=== PATIENT | female | born 1955 | race Caucasian/White ===

== ENCOUNTER 2024-05-31 07:20 | Outpatient (CLI) | payer MEDICARE, SELFPAY ==
--- NOTE | ~2024-05-31 | CT_ITS ---
EXAMINATION: CT abdomen pelvis wo/w con DATE: 05/31/2024 08:28 INDICATION: Microscopic hematuria TECHNIQUE: Computed tomography (CT) of the abdomen and pelvis was performed without intravenous contr ast. CT of the abdomen and pelvis was then performed with a total of 130 mL Omnipaque-350 intravenous contrast using a double-bolus technique for simultaneous opacification of the renal parenchyma and r enal collecting system. Automated exposure control and iterative reconstruction technique were employ ed. The dose-length product was 2327.88 mGy-cm. COMPARISON: None FINDINGS: Mild discoid atelectasis in bilateral lung bases. Calcified left lower lobe nodule along with calcifi ed mediastinal lymph nodes and numerous small splenic calcific lesions, all consistent with old granu lomatous disease. Heart size is normal. No pericardial or pleural effusion. Cholecystectomy clips the gallbladder fossa. Liver, pancreas and bilateral adrenal glands are normal. Small region of cortical scarring at the upper pole of the right kidney likely sequela prior infectio n or infarction. There are few subcentimeter cysts measuring up to 9 mm in the left kidney. Mild righ t hydronephrosis with transition point near the ureteropelvic junction where there is a sharp kink in the course of the ureter. The kinking appears transient, not observed on the prior precontrast image s. No left-sided hydronephrosis. No urolithiasis. The left ureter is opacified in its entirety. The d istal right ureter remains unopacified likely due to decompressed state. No urothelial irregularities identified at the bilateral renal collecting systems or contrast opacified portions of the ureters. Bladder is unremarkable. Uterus and bilateral adnexa are unremarkable. There is moderate colonic diverticulosis with a sigmoid predominance. There is no adjacent inflammatory change to suggest diverticulitis. No bowel obstruc tion. No free intraperitoneal gas or fluid. No pathologically enlarged abdominal or pelvic lymphadeno chilango. T6-T9 chronic compression and burst fractures with vertebral plasties at T6-T8. IMPRESSION: 1. No urolithiasis or urothelial regularities to account for reported hematuria. 2. Mild right hydronephrosis with transition point at the proximal most right ureter where the ureter undergoes a transient sharp kink in its course seen on the postcontrast but not on the earlier preco ntrast images. Reviewed, dictated and finalized at location B. HOUSE ADMINISTRATOR IMPRESSION: 1. No urolithiasis or urothelial regularities to account for reported hematuria . 2. Mild right hydronephrosis with transition point at the proximal most right u reter where the ureter undergoes a transient sharp kink in its course seen on t he postcontrast but not on the earlier precontrast images.
[2024-05-31 08:08] LABS: Estimated Glomerular Filt Rate > 60
== END 2024-05-31 07:21 | disposition home or self-care (01) ==
PROVIDERS: PCP Physician Assistant; Visit Provider Urology
DX: R31.29 Other microscopic hematuria (principal); N13.30 Unspecified hydronephrosis
CPT/HCPCS: 74178; Q9967

== ENCOUNTER 2024-06-28 12:12 | Outpatient (CLI) | payer MEDICARE, SELFPAY ==
--- NOTE | ~2024-06-28 | NM_ITS ---
EXAMINATION: JAY mckee renal scan DATE: 06/28/2024 13:28 INDICATION: Hydronephrosis TECHNIQUE: 8.3 mCi Tc-99m MAG3 was administered IV. 40 mg furosemide was administered IV immediately afterward. The patient was scanned in the supine position. A posterior abdominal radionuclide angiog ayala was obtained. A subsequent time course of static images of the kidneys, ureters, and bladder was obtained. COMPARISON: CT dated 05/31/2024 FINDINGS: The posterior abdominal radionuclide angiogram and sequential static images show normal size, positio n, and morphology of the kidneys. Peak renal parenchymal uptake was 2.4 min in left kidney and 5.4 mi n in right kidney (normal peak 3-5 minutes). The relative early renal uptake was 53% on the left and 47% on the right (<40% is abnormal). No abnormalities of the ureters or bladder are seen. T1/2 for clearance of activity from the left kidney and proximal collecting system was 5 minutes. T1/2 for clearance of activity from the right kidney and proximal collecting system was 29 minutes. Notes on interpretation: T1/2 <10 minutes is normal, 10-15 minutes is low grade obstruction of questi onable clinical significance, 15-20 minutes is partial obstruction that is likely clinically signific ant, >20 minutes is high grade obstruction. Note that false positives may be seen with supine positio dana, dehydration, severely dilated nonobstructed kidney, atonic collecting system, poor renal functi on, and chronic furosemide use. IMPRESSION: 1. Symmetric kidney function. 2. Significantly delayed activity clearance from the right kidney consistent with high-grade obstruc tion or potentially lower grade obstruction with atonic collecting system. Reviewed, dictated and finalized at location A. ICAL ACCOUNT SPECIALIST IMPRESSION: 1. Symmetric kidney function. 2. Significantly delayed activity clearance from the right kidney consistent w ith high-grade obstruction or potentially lower grade obstruction with atonic c ollecting system.
== END 2024-06-28 12:13 | disposition home or self-care (01) ==
PROVIDERS: PCP Physician Assistant; Visit Provider Urology
DX: N13.30 Unspecified hydronephrosis (principal)
CPT/HCPCS: 78708; A9562; J1940

== ENCOUNTER 2024-11-17 12:31 | Outpatient (CLI) | payer MEDICARE, SELFPAY ==
--- NOTE | ~2024-11-17 | NM_ITS ---
EXAMINATION: JAY mckee renal scan DATE: 11/18/2024 07:13 INDICATION: Hydronephrosis TECHNIQUE: 8.07 mCi Tc-99m MAG3 was administered IV. 40 mg furosemide was administered IV immediatel y afterward. The patient was scanned in the supine position. A posterior abdominal radionuclide angio gram was obtained. A subsequent time course of static images of the kidneys, ureters, and bladder was obtained. COMPARISON: Renal scan dated 06/28/[address] dated 05/31/2024 FINDINGS: The posterior abdominal radionuclide angiogram and sequential static images show normal size, positio n, and morphology of the kidneys. Peak renal parenchymal uptake was 2.4 min in left kidney and 1.4 mi n in right kidney (normal peak 3-5 minutes). The relative early renal uptake was 53% on the left and 47% on the right (<40% is abnormal). No abnormalities of the ureters or bladder are seen. T1/2 for clearance of activity from the left kidney and proximal collecting system was 6 minutes. T1/2 for clearance of activity from the right kidney and proximal collecting system was 29 minutes. Notes on interpretation: T1/2 <10 minutes is normal, 10-15 minutes is low grade obstruction of questi onable clinical significance, 15-20 minutes is partial obstruction that is likely clinically signific ant, >20 minutes is high grade obstruction. Note that false positives may be seen with supine positio dana, dehydration, severely dilated nonobstructed kidney, atonic collecting system, poor renal functi on, and chronic furosemide use. IMPRESSION: 1. Symmetric kidney function. 2. Significantly delayed activity clearance from the right kidney consistent with high-grade obstruc tion or potentially lower grade obstruction with atonic collecting system. Favor the latter given rosy t this has been present for multiple months without significant asymmetric loss of right renal functi on. Reviewed, dictated and finalized at location A. IMPRESSION: 1. Symmetric kidney function. 2. Significantly delayed activity clearance from the right kidney consistent w ith high-grade obstruction or potentially lower grade obstruction with atonic c ollecting system. Favor the latter given that this has been present for multipl e months without significant asymmetric loss of right renal function.
--- OUTSIDE RECORDS SUMMARY | 2024-11-17 14:27 | XMS_ITS | Referral Summary ---
Author Organization [facility] Address [address] [place] [address] Care Team Providers Care Assistant Produce Manager Name Role Phone Barbie Chase Primary Care Provider + Allergies Active Allergy Reactions Criticality Noted Date Comments Adhesive Hives,Itching,Rash, Swelling Medium 12/05/2016 Cephalexin Hives High 04/30/2005 Dexamethasone Hives,Other (See comments) Medium 02/23/2018 Weight gain Doxycycline Hives,Other (See comments) Medium 11/23/2003 Esophageal ulcer Gave ulcer in esauphagus Famotidine Hives Medium 11/23/2003 Gluten Diarrhea,Flatulence ,Mental status changes,Nausea & Vomiting,Other (See comments),Stomach upset,Vomiting Low 07/20/2018 celiac's Lisinopril Cough Low 06/26/2020 Metoclopramide Hives High 04/30/2005 Naproxen Hives Medium 11/23/2003 Penicillins Hives,Other (See comments) High 11/23/2003 dyspnea Sennosides-Docusate Sodium Hives High 08/07/2012 Sodium Phosphate Hives Medium 02/23/2018 Medications albuterol HFA (PROVENTIL HFA,VENTOLIN HFA,PROAIR HFA) 90 mcg/actuation inhaler Inhale 2 puffs every 4 (four) hours as needed Active amLODIPine (NORVASC) 5 mg tablet Take 1 tablet (5 mg total) by mouth daily 1 Active calcium carbonate-vitami n D3 (CALTRATE 600 + D) 1500 mg (600 mg elemental) -400 units per tablet 1 Active estradioL (ESTRACE) 0.01 % (0.1 mg/gram) vaginal cream Insert 0.5 g into the vagina once a week 0 Active fexofenadine (CHRISTIAN) 180 mg tablet Take 1 tablet (180 mg total) by mouth daily 1 Active olmesartan (BENICAR) 40 mg tablet Take 1 tablet (40 mg total) by mouth daily 1 Active omeprazole (PriLOSEC) 40 mg capsule Take 1 capsule (40 mg total) by mouth daily 1 Active vitamin E (AQUASOL E) 1,000 unit capsule Take by mouth daily 1 Active multivitamin capsule Take 1 capsule by mouth daily Active triamcinolone (NASACORT) 55 mcg nasal inhaler Administer 2 sprays into each nostril daily Active pen needle, diabetic (Unifine Pentips) 31 gauge x 3/16 needleIndication s:Osteoporosis, unspecified osteoporosis type, unspecified pathological fracture presence Use daily with Tymlos. 100 each 1 2 Active Additional Information Patient not taking.Reported on 03/23/2024 fluticasone furoate-vilanter oL (Breo Ellipta) 100-25 mcg/dose diskus inhaler Inhale 1 puff daily 2 Active abaloparatide (Tymlos) 80 mcg (3,120 mcg/1.56 mL) pen injector Inject 0.04 mL (80 mcg total) under the skin daily Active aspirin 81 mg chewable tablet Take 1 tablet (81 mg total) by mouth daily 4 Active dicyclomine (BENTYL) 20 mg tablet Take 1 tablet (20 mg total) by mouth 4 (four) times a day as needed 3 Active metoprolol XL (TOPROL-XL) 50 mg extended release tablet Take 1 tablet (50 mg total) by mouth daily 4 Active nitroglycerin (NITROSTAT) 0.[address] 1 tablet (0.4 mg total) under the tongue every 5 (five) minutes as needed 4 Active valACYclovir (VALTREX) 1 gram tablet Take 2 tablets (2,000 mg total) by mouth 2 (two) times a day 4 Active Active Problems Problem Noted Date Diagnosed Date Age-related osteoporosis wit hout current pathological fracture 02/18/2023 Social History Tobacco Use Types Packs/Day Years Used Date Smoking Tobacco: Never Smokeless Tobacco: Never Personal Safety Answer Date Recorded Getting School Help Needed Not on file 05/29 Comments Unknown Sex and Gender Information Value Date Recorded Sex Assigned at Not on file Legal Sex Female 11:31 PM STRATEGIC SOURCING CONSULTANT Gender Identity Female 09/05/2021 9:26 AM CDT Sexual Orientation Straight 09/05/2021 9: 26 AM CDT Last Filed Vital Signs Vital Sign Reading Time Taken Comments Blood Pressure 107/46 04/02/2024 12:13 PM CDT Pulse 54 04/02/2024 12:13 PM CDT Temperature 36.7 C (98 F) 04/02/2024 12:13 PM CDT Respiratory Rate 18 04/02/2024 12:13 PM CDT Oxygen Saturation 99% 04/02/2024 12:13 PM CDT Inhaled Oxygen Concentration - - Weight 94.5 kg (208 lb 4.8 oz) 04/02/2024 12:07 PM CDT Height 163.8 cm (5' 4.5) 03/23/2024 1:21 PM CDT Body Mass Index 35.2 03/23/2024 1:21 PM CDT Plan of Treatment Not on file Procedures Procedure Name Priority Date/Time Associated Diagnosis Comments DEXA TBS AXIAL SKELETON BONE DENSITY 1 OR MORE SITES Schedule Routine, Read Routine (OP Routine) 03/23/2024 1:18 PM CDT Age-related osteoporosis without current pathological fracture from Last 3 Months or Most Recently Relevant to Health Maintenance Results * Dexa TBS Axial Skeleton Bone Density 1 or more sites (03/23/2024 1:18 PM CDT) Anatomical Region Laterality Modality Wrist, Body N/A Radiographic Stephanie ging Narrative 03/23/2024 3:07 PM CDT Patient Name: Kimberley Sinha Date of : 1955 Date of scan: 03/23/2024 Bone mineral density was performed on a Hologic Discovery Densitometer. Based on machine cross-calibration and precision studies the least significant changes of this densitometer is 0.024 g/cm2 at the spine, 0.020 g/cm2 at the total proximal femur, and 0.014g/cm2 at the forearm. HISTORY: This is a 68 y.o. postmenopausal female with a history of asthma, celiac disease, osteoporosis, and vitamin D deficiency. She reports that she has never smoked. She has never used smokeless tobacco. Currently on treatment with calcium, vitamin D, and zoledronic acid (Reclast), previously treated with ibandronate (Boniva) and abaloparatide (Tymlos), and current complaint of arm pain, back pain, neck pain, and leg pain. INDICATIONS: Menopause status, treatment monitoring, history of prior wrist and vertebral fracture, vitamin D deficiency, and history of osteoporosis. FINDINGS: BONE MINERAL DENSITY OF THE LUMBAR SPINE Bone Mineral Density (BMD) of the lumbar spine was measured from L1-L4 and the average density was calculated to be 0.969 gm/cm2. This corresponds to a T-score (standard deviations from the mean of young adults) of -0.7. When compared to the previous study of 02/18/2023 there has been a 0.064 gm/cm (7.1%) increase in bone density that is considered significant. BONE MINERAL DENSITY OF THE PROXIMAL FEMUR Bone Mineral Density (BMD) of the left hip total was found to be 0.710 gm/cm2. This corresponds to a T-score standard deviations from the mean of young adults of -1.9. Femoral neck is 0.536 gm/cm2 with a T-score (standard deviations from the mean of young adults) of -2.8. When compared to the previous study of 02/18/2023 there has been no significant changes in bone density. BONE MINERAL DENSITY OF THE FOREARM Bone Mineral density (BMD) of the left proximal 1/3 of the radius measures 0.539 gm/cm2. This corresponds to a T-score (standard deviations from the mean of young adults) of -2.6. There is no previous study available for comparison. A forearm bone density study was performed in addition to the routine study because of forearm protocol . SUMMARY: Bone mineral density shows evidence of osteoporosis and marked increase risk of fracture. There has been a significant increase in bone density since previous measurement. The lumbar spine Trabecular Bone Score is 1.189 which suggests degraded bone microarchitecture compared to the general population. Final decisions regarding diagnostic or therapeutic recommendations should include BMD, TBS, additional clinical risk factors as well the clinical context of the patient. Please see attached TBS results for further details. ADDITIONAL COMMENTS: Postmenopausal Women and Men Over 50: Diagnostic criteria: Osteoporosis: BMD at or below -2.5 T-score; Osteopenia (low bone mass): BMD between -1.0 and -2.5 T-score. If the patient has a history of a fragility fracture, a fracture that occurred with trauma equivalent to a fall from a standing position or less, then the diagnosis is osteoporosis regardless of bone density. The history and data sections of the bone mineral density scan were prepared by Kami Tran(Abdi)(Lopez)(BD) CBDT who is accredited by the International Society of Clinical Densitometry. The overall patient assessment and scan interpretation were performed by Tawanna Garcia MD who is certified by the International Society of Clinical Densitometry. [id number] Tawanna Garcia MD IMG DXA PROCEDURES Final Resu lt from Last 3 Months or Most Recently Relevant to Health Maintenance Insurance [facility] MEDICARE ADVANTAGE [facility]IC[facility] Address: [facility] [address] [place] [address] [facility] MEDICARE ADVANTAGE [facility] Address[id number] [place] [address] Care Teams Assistant Produce Manager Relationship Specialty Start Date End Date Barbie Chase PA [address] [place] [address] PCP - General Physician Freelance Digital Project Manager 01/01/21
--- OUTSIDE RECORDS SUMMARY | 2024-11-17 14:27 | XMS_ITS | Clinical Summary ---
Author Organization [facility] Address [address] [place] [address] Phone Care Team Providers Care Rn Manager Name Role Phone Osmani Blakely MD Primary Care Provider Allergies Active Allergy Reactions Criticality Noted Date Comments Amoxicillin-Pot Clavulanate Hives High 08/07/2012 Cephalexin Hives High 08/07/2012 Doxycycline Hyclate Other (See Comments) 08/07/2012 Gave ulcer in esauphagus Metoclopramide Hives High 08/07/2012 Penicillins Hives,Other (See Comments) High 08/07/2012 Sennosides-Docusate Sodium Hives High 08/07/2012 Medications MULTIVITAMIN ORALIndications: Mastalgia,Family history of breast cancer Take by mouth. Active VITAMIN E ORAL Take by mouth. Active CALCIUM ORAL Take by mouth. Active Active Problems Patient Care Coordination No te Formatting of this note migh t be different from the original. Primary Care: Osmani Pérez MD Referring Provider: Osmani Pérez MD [address] [address] Other: Problem Noted Date Diagnosed Date FH: malignant neoplasm of breast 08/18/2012 Overview (08/02/2013): calculated, five-year risk 3.4% and her lifetime risk is 19.3%. 08/19/12 EVISTA x 9 months Assessment & Plan (08/02/2013 2:59 PM FAMILY LAW ATTORNEY): Flor voss d/t Ses Depression, weight gain, etc after 6 months leg cramps mammo August Assessment & Plan (03/09/2013 9:49 AM CDT): Evista 6 months Assessment & Plan (08/19/2012 1:08 PM CDT): IOV Boby Breast pain - primrose oil 2 tabs with meals tid 3 previous bx in [place] last 20 years last one 2000 ROV months wihtout coutning biopsies her risk is 2.5 and 14.5% Celiac disease Arthritis Family History Medical History Relation Name Comments Other Father when pt in [place] Breast Cancer Maternal Aunt Osteoporosis Mother age 8y Breast Cancer Sister 1 mohit Cancer Sister 1 mohit skin Heart Disease Sister 2 miracle Stroke Sister 2 miracle Uterine Cancer Sister 2 miracle Healthy Sister 3 mirlande Healthy Sister 4 tanvir Aneurysm Sister 5 joshua brain Ovarian Cancer Neg Hx Relation Name Status Comments Father Maternal Aunt Mother Sister 1 mohit Alive Sister 2 miracle Alive Sister 3 mirlande Alive Sister 4 tanvir Alive Sister 5 joshua Social History Tobacco Use Types Packs/Day Years Used Date Smoking Tobacco: Never Smokeless Tobacco: Never Alcohol Use Standard Drinks/Week Comments Yes 0 (1 standard drink = 0.6 oz pur e alcohol) occasionally Comments No Sex and Gender Information Value Date Recorded Sex Assigned at Not on file Legal Sex Female 12:24 PM FAMILY LAW ATTORNEY Gender Identity Not on file Sexual Orientation Not on file 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 Not on file Not on file Not on file Last Filed Vital Signs Vital Sign Reading Time Taken Comments Blood Pressure 149/89 10/11/2014 9:31 AM CDT Pulse 64 10/11/2014 9:31 AM CDT Temperature 36.9 C (98.5 F) 08/02/2013 2:42 PM FAMILY LAW ATTORNEY Respiratory Rate 16 08/02/2013 2:42 PM FAMILY LAW ATTORNEY Oxygen Saturation - - Inhaled Oxygen Concentration - - Weight 94.3 kg (208 lb) 10/11/2014 9:31 AM CDT Height 170.2 cm (5' 7) 10/11/2014 9:31 AM CDT Body Mass Index 32.58 10/11/2014 9:31 AM CDT Plan of Treatment Health Maintenance Due Date Last Done Comments DTAP/TDAP/TD VACCINES (1 - Tdap) 1974 COLORECTAL SCREENING 2000 Colorectal Cancer Screening 2000 FIT-DNA Q 3 years 2000 FIT/FOBT Q 1 year 2000 Flex Sig/CT Colonography Q 5 years 2000 PNEUMOCOCCAL VACCINE 50+ YEA RS (1 of 1 - PCV) 2005 ZOSTER VACCINE (1 of 2) 2005 BREAST CANCER SCREENING 07/18/2016 07/18/19 16, 07/18/2015, 10/11/2014, Additional history exists OSTEOPOROSIS SCREENING 2020 INFLUENZA VACCINE (#1) 2024 RSV VACCINE (60+ or ) (1 - 1-dose 75+ series) 2030 Procedures Procedure Name Priority Date/Time Associated Diagnosis Comments MAMMO DIAGNOSTIC BILATERAL W OR WO CAD Routine 10/11/2014 9:54 AM CDT FH: malignant neoplasm of breast from Last 3 Months or Most Recently Relevant to Health Maintenance Results * MAMMO DIGITAL DIAG BILAT (10/11/2014 9:54 AM CDT) Anatomical Region Laterality Modality Breast Bilateral Mammography 10/11/2014 9:51 AM CDT Narrative 10/17/2014 7:33 AM CDT EXAM: BILATERAL DIAGNOSTIC FULL FIELD DIGITAL MAMMOGRAPHY WITH CAD DATE: 10/11/14 HISTORY: Previous benign surgical biopsies on the left. Annual followup. TECHNIQUE: Mediolateral oblique and craniocaudal views of both breasts were performed using full field digital mammography. Computer aided diagnosis was performed. Comparison exams date back to July 2008 BREAST COMPOSITION: Heterogeneously dense, which lowers the sensitivity of mammography. FINDINGS: No suspicious finding are seen on the current mammogram. Since the prior study, there has been no significant change. CAD detected no significant abnormality. OVERALL ASSESSMENT: BI-RADS Category: 1. Negative. RECOMMENDATION: Routine mammographic followup in one year. Dictated from [facility] Procedure Note Sukumar Pruitt MD - 10/17/2014 EXAM: BILATERAL DIAGNOSTIC FULL FIELD DIGITAL MAMMOGRAPHY WITH CAD DATE: 10/11/14 HISTORY: Previous benign surgical biopsies on the left. Annual followup. TECHNIQUE: Mediolateral oblique and craniocaudal views of both breasts were performed using full field digital mammography. Computer aided diagnosis was performed. Comparison exams date back to July 2008 BREAST COMPOSITION: Heterogeneously dense, which lowers the sensitivity of mammography. FINDINGS: No suspicious finding are seen on the current mammogram. Since the prior study, there has been no significant change. CAD detected no significant abnormality. OVERALL ASSESSMENT: BI-RADS Category: 1. Negative. RECOMMENDATION: Routine mammographic followup in one year. Dictated from [facility] Janet Martinez MD MAMMO ORDERABLES Final Result from Last 3 Months or Most Recently Relevant to Health Maintenance Insurance Care Teams Rn Manager Relationship Specialty Start Date End Date Osmani Blakely MD [address] [address] PCP - General Family Practice 08/07/12
--- OUTSIDE RECORDS SUMMARY | 2024-11-17 14:27 | XMS_ITS | Clinical Summary ---
Author Organization [facility] Address [address] [place] [address] Care Team Providers Care Cotton Chopper Name Role Phone Barbie Chase Primary Care [...] osteoporosis wit hout current pathological fracture 02/18/2023 Family History Medical History Relation Name Comments Osteoporosis Mother Osteoporosis Sister 1 Broken bones Sister 2 Hip fracture Neg Hx Kyphosis Neg Hx Scoliosis Neg Hx Relation Name Status Comments Mother Sister 1 Sister 2 Alive Social History Tobacco Use Types Packs/Day Years Used Date Smoking Tobacco: Never Smokeless Tobacco: Never Personal Safety Answer Date Recorded Getting School Help Needed Not on file 05/29 Comments Unknown Sex and Gender Information Value Date Recorded Sex Assigned at Not on file Legal Sex Female 11:31 PM BUILDING PERFORMANCE CONSULTANT Gender Identity Female 09/05/2021 9:26 AM CDT Sexual Orientation Straight 09/05/2021 9: 26 AM CDT Obstetrics History Last Filed Vital Signs Vital Sign Reading [...] 03/23/2024 1:21 PM CDT Plan of Treatment Health Maintenance Due Date Last Done Comments Colon Cancer Screening-Colonoscopy 1955 Depression Screening 1955 Fall Risk Assessment 1955 Hepatitis C Screening 1955 Hepatitis B Screening 1973 Zoster Vaccine (1 of 2) 2005 Well Visit 65+ 2020 Pneumococcal vaccine 65+ (2 of 2 - PCV) 07/17/2021 07/17/2020 Covid-19 Vaccine (2023-2 5 season) 2024 09/27/2020, 08/30/2020 Breast Cancer Screening-Mammogram 11/23/2024 11/24/2023, 11/24/2023, 09/23/2022, Additional history exists Influenza Vaccine (Season Ended) 2025 03/02/2020, 02/23/2018, 03/11/2017 Osteoporosis Screening-Bone Density Scan 03/23/2026 03/23/2024, 02/18/2023, 05/15/2022, Additional history exists DTaP/Tdap/Td Vaccine (3 - Td or Tdap) 07/20/2028 07/20/2018, 11/04/2008 Procedures Procedure Name Priority Date/Time Associated Diagnosis [...] mineral density scan were prepared by Kami Tracey R.T.(R)(M)(BD) CBDT who is accredited by the International Society of Clinical Densitometry. The overall patient assessment and scan interpretation were performed by Tawanna Garcia MD who is certified by the International Society of Clinical Densitometry. [id number] Tawanna Garcia MD IMG DXA PROCEDURES Final Resu lt from Last 3 Months or Most Recently Relevant to Health Maintenance Insurance [employer] ADVANTAGE [employer] Care Teams Cotton Chopper Relationship Specialty Start Date End Date Barbie Chase PA [address] [place] [address] PCP - General Physician Neon Glass Bender 01/01/21
== END 2024-11-17 12:32 | disposition home or self-care (01) ==
PROVIDERS: PCP Physician Assistant; Visit Provider Urology
DX: N13.30 Unspecified hydronephrosis (principal)
CPT/HCPCS: 78708; A9562; J1938

== ENCOUNTER 2025-05-18 12:54 | Outpatient (CLI) | payer MEDICARE, SELFPAY ==
--- NOTE | ~2025-05-18 | NM_ITS ---
EXAMINATION: JAY mckee renal scan DATE: 05/18/2025 15:42 INDICATION: Right hydronephrosis TECHNIQUE: 7.6 mCi Tc-99m MAG3 was administered IV. 40 mg furosemide was administered IV 10 minutes afterward. The patient was scanned in the upright/supine position. A posterior abdominal radionuclide angiogram was obtained. A subsequent time course of static images of the kidneys, ureters, and bladder was obtained. COMPARISON: None FINDINGS: The posterior abdominal radionuclide angiogram and sequential static images show normal size, position, and morphology of the kidneys. Peak renal parenchymal uptake was 4.5 min in left kidney and 11.5 min in right kidney (normal peak 3-5 minutes). The relative early renal uptake was 52% on the left and 48% on the right (<40% is abnormal). No abnormalities of the ureters or bladder are seen. T1/2 for clearance of activity from the left kidney and proximal collecting system was 8 minutes. T1/2 for clearance of activity from the right kidney and proximal collecting system was 5 minutes. Notes on interpretation: T1/2 <10 minutes is normal, 10-15 minutes is low grade obstruction of questionable clinical significance, 15-20 minutes is partial obstruction that is likely clinically significant, >20 minutes is high grade obstruction. Note that false positives may be seen with supine positioning, dehydration, severely dilated nonobstructed kidney, atonic collecting system, poor renal function, and chronic furosemide use. IMPRESSION: 1. Symmetric kidney function. 2. No delay in contrast clearance from either kidney to suggest fixed obstruction. Reviewed, dictated and finalized at location A. ICATIONS CONSULTANT IMPRESSION: 1. Symmetric kidney function. 2. No delay in contrast clearance from either kidney to suggest fixed obstruct ion.
== END 2025-05-18 12:55 | disposition home or self-care (01) ==
PROVIDERS: PCP Physician Assistant; Visit Provider Urology
DX: N13.30 Unspecified hydronephrosis (principal)
CPT/HCPCS: 78708; A9562